=== PATIENT | male | born 1980 | race Hispanic/Latino ===

== ENCOUNTER 2017-11-26 23:51 | Emergency (ER) | payer OTHER ==
[2017-11-27] MEDS ORDERED: ONDANSETRON 4 MG TABLET ONE (00:10)
[2017-11-27] MEDS ORDERED: FAMOTIDINE 20MG TAB 20 MG TAB ONE (00:10)
[2017-11-27 00:16] LABS: BASOPHILS % (AUTO) 0.9 % (0.0-5.0); EOSINOPHILS % (AUTO) 1.1 % (0.0-8.0); HEMATOCRIT 41.3 % (42-54); LYMPHOCYTES % (AUTO) 21.6 % (21.0-51.0); MEAN CORPUSCULAR HEMOGLOBIN 27.3 pg (27.0-33.0); MEAN CORPUSCULAR HGB CONC 33.6 g/dL (32.0-36.0); MEAN CORPUSCULAR VOLUME 81.3 fL (79-99); MONOCYTES % (AUTO) 4.5 % (3.0-13.0); NEUTROPHILS % (AUTO) 71.9 % (40.0-77.0); PLATELET COUNT (AUTO) 298 K/uL (130-400); RED BLOOD CELL COUNT(AUTO) 5.08 MIL/uL (4.50-6.20); RED CELL DISTRIBUTION WIDTH 14.4 % (11.0-15.5); WHITE BLOOD COUNT (AUTO) 11.4 K/uL (4.8-10.8)
[2017-11-27 00:30] LABS: POTASSIUM 3.4 mmol/L (3.5-5.1)
[2017-11-27 00:34] LABS: ALBUMIN 3.3 g/dL (3.5-5.0); BILIRUBIN,TOTAL 0.2 mg/dL (0.2-1.0); TOTAL PROTEIN, SERUM 7.5 g/dL (6.0-8.3)
[2017-11-27] MEDS ORDERED: SODIUM CHLORIDE 0.9% 1000ML 1,000 ML IV ONE (00:37)
[2017-11-27] MEDS ORDERED: KETOROLAC TROMETHAMINE 30MG/ML ONE (00:38)
[2017-11-27] MEDS ORDERED: SUCRALFATE 1 GM TABLET ONE (01:52)
[2017-11-27] MEDS ORDERED: LIDOCAINE HCL 2% VISCOUS 15 ML UDCUP ONE (02:44)
[2017-11-27] MEDS ORDERED: MAG HYDROX/AL HYDROX/SIMETH ES 30 ML SUSP UDCUP ONE (02:44)
== END 2017-11-27 04:11 | disposition home or self-care (01) ==
LOC: EDH 23:51
DX: R10.13 Epigastric pain (principal); R11.2 Nausea with vomiting, unspecified
CPT/HCPCS: 36415; 76705; 80053; 83690; 85025; 96361; 96374; 99285; J1885; J7030; Q0162

== ENCOUNTER 2022-02-09 17:16 | Emergency (ER) | payer OTHER ==
[~2022-02-09] VITALS: Ht 170.2 cm; Wt 129.7 kg
[2022-02-09] MEDS ORDERED: KETOROLAC 30MG VIAL (30MG/ML) IM ONE (19:00)
[2022-02-09] MEDS ORDERED: NAPR-1180 PO (19:57)
[2022-02-09] MEDS ORDERED: CYCL-309 PO (19:57)
[2022-02-09 20:05] VITALS: BP 132/91
== END 2022-02-09 20:09 | disposition home or self-care (01) ==
LOC: EDH 17:16
DX: S16.1XXA Strain of muscle, fascia and tendon at neck level, initial encounter (principal); S86.911A Strain of unspecified muscle(s) and tendon(s) at lower leg level, right leg, initial encounter; Z79.1 Long term (current) use of non-steroidal anti-inflammatories (NSAID); V89.2XXA Person injured in unspecified motor-vehicle accident, traffic, initial encounter; Y93.89 Activity, other specified; Y92.89 Other specified places as the place of occurrence of the external cause; Y99.8 Other external cause status
CPT/HCPCS: 72040; 96372; 99283; J1885